=== PATIENT | female | born 1955 | race Caucasian/White ===

== ENCOUNTER 2016-09-05 11:27 | Emergency (ER) | payer MEDICAID ==
--- NOTE | ~2016-09-05 | ER ---
PATIENT'S NAME: MARISOL SCHNEIDER [facility] AGE: 61 Y [address] ROOM: [place] [address] LOCATION: [facility] ADMIT DATE: 09/05/2016 ER/Outpatient Report DISCHARGE DATE: 09/05/2016 FAMILY PHYSICIAN: Rolly Cole MD ATTENDING PHYSICIAN: Macario Cerda Admission date and time documented on the medical record. I saw the patient at 1135 hours. CHIEF COMPLAINT: Left anterior chest pain, shortness of breath, and nausea. HISTORY OF PRESENT ILLNESS: The patient is a 61-year-old female, who was sitting about 30 minutes prior to admission in the emergency room developed left anterior chest pain, nonradiating. Some shortness of breath and nausea, but no vomiting, diarrhea, or urinary complaints. No diaphoresis. No lightheadedness, dizziness, syncope, or near syncope. No headache, eyes, ears, nose, throat, neck, or spine pain. No recent colds, coughs, flus, fever, chills, or sweats. No fall or trauma. Has been under a lot of stress of late. Is known to have coronary artery disease. Has had stenting. No abdominal pain. No joint or muscle swelling, redness, or pain. No skin eruptions or rash. Does have some insomnia problems. Does have some anxiety depression. No neuro changes. No endocrine problems. HOME MEDICATIONS: See attached medication list. ALLERGIES: PENICILLIN, EPINEPHRINE, VICODIN, AND DOPAMINE. SOCIAL HISTORY: Nonsmoker. Occasional intake of alcohol. SIGNIFICANT PAST MEDICAL HISTORY: Atherosclerotic ischemic heart disease, coronary artery disease, hypertension, dyslipidemia, gastroesophageal reflux, insomnia, unstable angina, exogenous obesity, anxiety, depression, remote tobacco abuse, and hypothyroidism. OPERATIONS: x2, lap band surgery, hysterectomy, cholecystectomy, appendectomy, and cardiac catheterization with PTCA and stenting. REVIEW OF SYSTEMS: All systems reviewed by me are negative with the exception of those discussed PATIENT'S NAME: MARISOL SCHNEIDER [facility] AGE: 61 Y [address] ROOM: [place] [address] LOCATION: [facility] ADMIT DATE: 09/05/2016 ER/Outpatient Report DISCHARGE DATE: 09/05/2016 FAMILY PHYSICIAN: Rolly Cole MD ATTENDING PHYSICIAN: Macario Cerda in the history of present illness. PHYSICAL EXAMINATION: VITAL SIGNS: Temperature 97.1 and tympanic, pulse 51 and regular, respiratory rate 20, blood pressure 211/100, and O2 saturation on room air is 97%. Lilli Coma Scale was 15. Latest blood pressure was 127/72. HEAD: Normocephalic. EYES, EARS, NOSE, THROAT: Clear. Mucous membranes moist. NECK: Negative. SPINE: Negative. LUNGS: Clear. Good air flow. No rales, rhonchi, or wheezes. HEART: Regular. Pulses are palpable. The patient does have a little bit tenderness over the left anterior chest wall to palpation. ABDOMEN: Obese, soft, nondistended, and nontender. Good bowel tones. No organomegaly or abnormal mass palpable. No CVA tenderness. EXTREMITIES: No peripheral edema, cyanosis, or deformity. NEUROVASCULAR: Intact. SKIN: Clear. DIAGNOSTIC DATA: EKG x2 showed sinus bradycardia, otherwise no acute ST elevation, ischemic change, or arrhythmia. CPK was normal x2, 2 hours apart. Point of care cardiac enzymes were normal x2, 2 hours apart. CMS was normal except for an elevated chloride of 111. Magnesium was 2.0. White count 7500, 55 segs, 33 lymphs, 9 monos, 2 eos, 1 baso; hemoglobin is 15.8; hematocrit 45.5; platelet count is 210,000. PTT was 25, pro-time is 10.6, and INR 1.01. EMERGENCY DEPARTMENT COURSE: I did start the patient on IV nitroglycerin drip, got her to 10 mcg with resolution of her pain, did also bring down her blood pressure nicely. We tapered this off. IMPRESSION: 1. Chest pain, etiology uncertain most likely secondary to stress and hypertension. No evidence of acute myocardial injury. The patient does have known coronary artery disease, hypertension, and dyslipidemia. 2. Exogenous obesity. 3. Anxiety and depression. 4. Hypothyroidism. 5. Remote tobacco abuse. 6. Gastroesophageal reflux. PLAN: The patient dismissed home. Observation. Activity as tolerated. Continue present home medications and care. Fluids and diet as tolerated. I did give PATIENT'S NAME: MARISOL SCHNEIDER [facility] AGE: 61 Y [address] ROOM: [place] [address] LOCATION: ED ADMIT DATE: 09/05/2016 ER/Outpatient Report DISCHARGE DATE: 09/05/2016 FAMILY PHYSICIAN: Rolly Cole MD ATTENDING PHYSICIAN: Macario Cerda her a refill of her sublingual nitroglycerin. She is to see her machine deburrer this coming week. Follow up with personal physician as needed. Discussion ensued with the patient concerning my findings and recommendations, she understands. MD ANNIE MAC/modl /[id number] d: 09/05/16 2251 t: 09/06/16 0622, OUTPATIENT REPORT
[2016-09-05 11:42] LABS: BASOPHIL # 0.1 K/uL (0.0-0.2); BASOPHIL % 0.7 %; EOSINOPHIL # 0.2 K/uL (0.0-0.5); EOSINOPHIL % 2.1 %; HEMATOCRIT 45.5 % (33.0-46.0); HEMOGLOBIN 15.8 g/dL (10.0-15.0); IMMATURE GRANULOCYTE % 0.1 %; LYMPHOCYTE # 2.5 K/uL (0.8-4.0); LYMPHOCYTE % 33.1 %; MCH 29.6 pg (27.0-34.0); MCHC 34.7 gm/dL (32.0-36.5); MCV 85.4 fl (83.0-98.0); MONOCYTE # 0.7 K/uL (0.0-1.0); MONOCYTE % 8.8 %; MPV 10.8 fl (9.4-12.4); NEUTROPHIL # (ANC) 4.1 K/uL (1.8-7.8); NEUTROPHIL % 55.2 %; NRBC % 0 /100WBC (0-0.00); PLATELET COUNT 210 K/uL (150-450); RBC 5.33 M/uL (3.50-5.50); WBC 7.5 K/uL (4.0-11.0)
[2016-09-05 11:51] LABS: INR - (THERAPEUTIC) 1.01 (0.92-1.07); PROTIME 10.6 SECONDS (9.8-11.4); PTT 25 SECONDS (25-32)
[2016-09-05 12:02] LABS: ALBUMIN 3.7 gm/dL (3.5-5.0); ALK PHOS 88 IU/L (33-138); ALT 40 IU/L (12-78); ANION GAP 12.4 (10.0-19.0); AST 21 IU/L (10-40); BLOOD UREA NITROGEN 13 mg/dL (6-24); CALCIUM 8.5 mg/dL (8.5-10.5); CHLORIDE 111 mMol/L (96-110); CO2 23 mMol/L (22-32); CPK 106 IU/L (21-215); CREATININE 0.7 mg/dL (0.5-1.1); POTASSIUM 4.4 mMol/L (3.7-5.1); SODIUM 142 mMol/L (135-145); TOTAL BILIRUBIN 0.6 mg/dL (0.0-1.5); TOTAL PROTEIN 7.5 g/dL (6.0-8.4)
[2016-09-05 13:48] LABS: CPK 98 IU/L (21-215)
== END 2016-09-05 14:46 | disposition disaster alternative care site (69) ==
LOC: GMED 11:27
PROVIDERS: Emergency Medicine
DX: R07.89 Other chest pain (principal); I10 Essential (primary) hypertension; I25.110 Atherosclerotic heart disease of native coronary artery with unstable angina pectoris; E66.09 Other obesity due to excess calories; F41.9 Anxiety disorder, unspecified; F32.9 Major depressive disorder, single episode, unspecified; E03.9 Hypothyroidism, unspecified; K21.9 Gastro-esophageal reflux disease without esophagitis; F10.10 Alcohol abuse, uncomplicated; G47.00 Insomnia, unspecified; E78.5 Hyperlipidemia, unspecified; Z90.49 Acquired absence of other specified parts of digestive tract; Z90.710 Acquired absence of both cervix and uterus; Z98.890 Other specified postprocedural states; Z88.0 Allergy status to penicillin; Z88.8 Allergy status to other drugs, medicaments and biological substances; Z88.5 Allergy status to narcotic agent
CPT/HCPCS: J2405; J7030